=== PATIENT | male | born 1990 | race Caucasian/White ===

== ENCOUNTER 2023-06-20 10:00 | Emergency (ER) | payer MEDICAID ==
[~2023-06-20] VITALS: Ht 180.3 cm; Wt 109.0 kg
[2023-06-20 10:09] VITALS: BP 127/75; PULSE 99; TEMP 98.4; O2SAT 98
[2023-06-20] MEDS ORDERED: BACI3.5O24 RIGHTEYE (11:03)
== END 2023-06-20 11:17 | disposition home or self-care (01) ==
LOC: ER 10:20
DX: R05.9 Cough, unspecified (principal); H00.011 Hordeolum externum right upper eyelid
CPT/HCPCS: 99282